=== PATIENT | female | born 1960 | race Caucasian/White ===

== ENCOUNTER → 2017-08-13 | Day surgery (SDC) | payer BC ==
[~2017-08-13] MED LIST: Lactated Ringers 1,000 ML IV SCH; Propofol 200 MG/20 ML SDV IV ONE
--- NOTE | 2017-08-13 09:17 | OR ---
DATE OF OPERATION: 08/13/2017 PREOPERATIVE DIAGNOSIS: FAMILY HISTORY OF COLON CANCER. POSTOPERATIVE DIAGNOSIS: FAMILY HISTORY OF COLON CANCER. SURGEON: Rubio Lawrence MD PROCEDURE: FULL-LENGTH COLONOSCOPY. ANESTHESIA: [employer]I [employer]INTER due to sleep apnea. COMPLICATIONS: None. SPECIMEN: None. FINDINGS: 1. Full-length colonoscopy. 2. Finch diverticulosis. RECOMMENDATIONS: Follow up colonoscopy every 5 years. INDICATIONS: The patient has a family history of colon CA. Dr. Cortez sent her for routine followup scope. DESCRIPTION OF PROCEDURE: The patient was prepped and draped, placed in the left lateral decubitus position. A lubricated Olympus colonoscope was inserted and easily and safely advanced to the cecum. Direct visualization of the ileocecal valve and appendiceal orifice was accomplished. The bowel prep was adequate. Upon withdrawal of the scope, the patient does suffer from finch diverticular disease, most prominent in the left colon as expected, but present near the cecal pouch as well. Throughout the length of the colon, I could find no signs of any polyps, mass, ulceration, or bleeding sites. No vascular abnormalities or signs of colitis. The rectal vault was benign. Retroflexion of the scope in the rectum showed no perianal lesions. Air was then suctioned. Scope was removed without complication. TOMY/JM /[id number]
== END ==
LOC: CC.SDS 06:26
PROVIDERS: ATTEND Family Medicine
DX: Z12.11 Encounter for screening for malignant neoplasm of colon (principal); K57.30 Diverticulosis of large intestine without perforation or abscess without bleeding; M19.90 Unspecified osteoarthritis, unspecified site; E11.9 Type 2 diabetes mellitus without complications; N85.2 Hypertrophy of uterus; E78.5 Hyperlipidemia, unspecified; I10 Essential (primary) hypertension; G47.33 Obstructive sleep apnea (adult) (pediatric); I35.8 Other nonrheumatic aortic valve disorders; B37.3 Candidiasis of vulva and vagina; E89.0 Postprocedural hypothyroidism; N76.0 Acute vaginitis; E55.9 Vitamin D deficiency, unspecified; Z80.0 Family history of malignant neoplasm of digestive organs; Z88.8 Allergy status to other drugs, medicaments and biological substances; Z79.82 Long term (current) use of aspirin; Z79.899 Other long term (current) drug therapy; Z79.84 Long term (current) use of oral hypoglycemic drugs; Z98.890 Other specified postprocedural states
CPT/HCPCS: 82962; J2704; J7120

== ENCOUNTER 2017-09-19 10:57 | Emergency (ER) | payer BC ==
--- NOTE | 2017-09-19 11:26 | EDM.PDOC ---
ED HPI GENERAL MEDICAL PROBLEM - General Chief Complaint: Lower Extremity Injury/Pain Stated Complaint: left calf pain Time Seen by Provider: 09/19/17 11:25 Source of Information: Reports: Patient History Limitations: Reports: No Limitations - History of Present Illness INITIAL COMMENTS - FREE TEXT/NARRATIVE: This patent is a 56 year old female that presents to the ER. Patient reports that she woke up this morning with left lower posterior calf pain. She reprots the pain is worse when she walks on it. Patient reports she had a hysterectomy on Wednesday without complications, she has a norwood in place now. Patient reports mild headache. Patient denies n, v, d, f, neck pain, neck stiffness, cp, soa, abd pain, bowel changes, rashes. Denies to LLE redness, heat, swelling. Pulses + 2, cap refill <2 sec, sensory/motor function, neurovascular intact. Onset: Today Location: Reports: Lower Extremity, Left Quality: Reports: Ache Severity: Mild Improves with: Reports: Immobilization Worsens with: Reports: Movement Associated Symptoms: Reports: No Other Symptoms, Headaches. Denies: Confusion, Chest Pain, Cough, cough w sputum, Diaphoresis, Fever/Chills, Loss of Appetite, Malaise, Nausea/Vomiting, Rash, Seizure, Shortness of Breath, Syncope, Weakness - Related Data Allergies Allergy/AdvReac Type Severity Reaction Status Date / Time acetaminophen [From Percocet] Allergy Itching Verified 09/19/17 11:04 oxycodone [From Percocet] Allergy Itching Verified 09/19/17 11:04 Home Meds: Home Meds Acetaminophen/Butalbital/Caff [Fioricet 325-50-40 MG] 1 - 2 tab PO TID PRN 08/12 [History] Aspirin [Halfprin] 81 mg PO DAILY 08/12/17 [History] Calcium Carbonate [Calcium] 1 tab PO DAILY 08/12/17 [History] Cholecalciferol (Vitamin D3) [Vitamin D3] 10,000 unit PO DAILY 08/12/17 [History ] Fenofibrate 160 mg PO DAILY 08/12/17 [History] Levothyroxine Sodium [Synthroid] 175 mcg PO DAILY 08/12/17 [History] Liraglutide [Victoza] 1.2 mg SUBCUT DAILY 08/12/17 [History] Lisinopril 10 mg PO DAILY 08/12/17 [History] Magnesium Oxide [Magnesium] 500 mg PO DAILY 08/12/17 [History] Pravastatin Sodium 10 mg PO DAILY 08/12/17 [History] Triamterene/Hydrochlorothiazid [Triamterene-HCTZ 37.5-25 MG] 1 cap PO DAILY 07/01 [History] Vitamin B Complex [B Complex] 1 tab PO DAILY 08/12/17 [History] metFORMIN HCl [Metformin HCl] 1,000 mg PO BID 08/12/17 [History] Nitrofurantoin Macrocrystal [Macrodantin] 100 mg PO DAILY 09/19/17 [History] Past Medical History HEENT History: Reports: Impaired Vision Cardiovascular History: Reports: Hypertension Respiratory History: Reports: Sleep Apnea Genitourinary History: Reports: Urinary Incontinence, Other (See Below) Other Genitourinary History: bladder nicked during hysterectomy Endocrine/Metabolic History: Reports: Hypothyroidism - Past Surgical History GI Surgical History: Reports: Cholecystectomy, Colonoscopy Female Surgical History: Reports: Section, Hysterectomy Endocrine Surgical History: Reports: Thyroidectomy, Other (See Below) Other Endocrine Surgeries/Procedures: thyroidectomy 1998 Musculoskeletal Surgical History: Reports: Joint Replacement, Other (See Below) Other Musculoskeletal Surgeries/Procedures:: right knee partial 2006 Social & Family History - Family History Family Medical History: Noncontributory - Tobacco Use Smoking Status *Q: Never Smoker - Caffeine Use Caffeine Use: Reports: Coffee - Recreational Drug Use Recreational Drug Use: No Review of Systems - Review of Systems Review Of Systems: See Below Constitutional: Reports: No Symptoms Eyes: Reports: No Symptoms Ears: Reports: No Symptoms Nose: Reports: No Symptoms Mouth/Throat: Reports: No Symptoms Respiratory: Reports: No Symptoms Cardiovascular: Reports: No Symptoms GI/Abdominal: Reports: No Symptoms Genitourinary: Reports: No Symptoms Musculoskeletal: Reports: Leg Pain (left lower extremity lower calf) Skin: Reports: No Symptoms Neurological: Reports: Headache. Denies: Confusion, Dizziness, Numbness, Seizure, Syncope, Tingling, Trouble Speaking, Difficulty Walking, Weakness, Change in Speech, Gait Disturbance Psychiatric: Reports: No Symptoms ED EXAM, GENERAL - Physical Exam Exam: See Below Exam Limited By: No Limitations General Appearance: Alert, WD/WN, No Apparent Distress Eye Exam: Bilateral Eye: Normal Inspection, PERRL Ears: Normal External Exam, Normal Canal, Hearing Grossly Normal, Normal TMs Ear Exam: Bilateral Ear: Auricle Normal, Canal Normal, TM normal Nose: Normal Inspection, Normal Mucosa, No Blood Throat/Mouth: Normal Inspection, Normal Lips, Normal Teeth, Normal Gums, Normal Oropharynx, Normal Voice, No Airway Compromise Head: Atraumatic, Normocephalic Neck: Normal Inspection, Supple, Non-Tender, Full Range of Motion Respiratory/Chest: No Respiratory Distress, Lungs Clear, Normal Breath Sounds, No Accessory Muscle Use Cardiovascular: Normal Peripheral Pulses, Regular Rate, Rhythm, No Edema, No Gallop, No JVD, No Murmur, No Rub Peripheral Pulses: 2+: Popliteal (L), Popliteal (R), Posterior Tibial (L), Posterior Tibial (R), Dorsalis Pedis (L), Dorsalis Pedis (R) Back Exam: Normal Inspection, Full Range of Motion Extremities: Normal Inspection, Normal Range of Motion, No Pedal Edema, Normal Capillary Refill, Other (left lower extremity distal posterior calf, mild tenderness. No swelling, redness, heat, wounds. Negative Holmans sign. ). No: Redness Neurological: Alert, Oriented, Normal Cognition, Normal Gait, No Motor/Sensory Deficits Psychiatric: Normal Affect, Normal Mood Skin Exam: Warm, Dry, Intact, Normal Color, No Rash Lymphatic: No Adenopathy Course - Vital Signs Last Recorded V/S: Last Vital Signs Temp 99.3 F 09/19/17 10:58 Pulse 88 09/19/17 10:58 Resp 18 09/19/17 10:58 BP 136/90 09/19/17 10:58 Pulse Ox 98 09/19/17 10:58 - Orders/Labs/Meds Orders: Active Orders 24 hr Category Date Time Status CULTURE BLOOD [BC] Stat Lab 09/19/17 11:34 Received CULTURE BLOOD [BC] Stat Lab 09/19/17 11:34 Received Blood Culture x2 Reflex Set [OM.PC] Stat Oth 09/19/17 11:14 Ordered Labs: Laboratory Tests 09/19/17 09/19/17 09/19/17 Range/Units 11:14 11:14 11:14 WBC 6.0 (5.0-10.0) 10^3/uL RBC 3.91 L (4.00-5.50) 10^6/uL Hgb 11.4 L (12.0-16.0) g/dL Hct 34.3 L (37.0-47.0) % MCV 87.7 (82.0-94.0) fL MCH 29.2 (27.0-32.0) pg MCHC 33.2 (33.0-38.0) g/dL RDW Coeff of Susanne 12.4 (11.0-15.0) % Plt Count 233 (150-400) 10^3/uL Neut % (Auto) 59.8 (35-85) % Lymph % (Auto) 21.9 (10-55) % Osborne % (Auto) 8.9 (0-16) % Eos % (Auto) 8.9 H (0-5) % Baso % (Auto) 0.5 (0-3) % Neut # (Auto) 3.61 (1.80-7.00) 10^3/uL Lymph # (Auto) 1.32 (1.00-4.80) 10^3/uL Osborne # (Auto) 0.54 (0.00-0.80) 10^3/uL Eos # (Auto) 0.54 H (0.00-0.45) 10^3/uL Baso # (Auto) 0.03 10^3/uL PT 9.5 L (9.7-12.3) SEC INR 0.91 L (0.92-1.18) APTT 23.8 (23.2-32.3) SEC D-Dimer, Quantitative 2.75 H (0.00-0.50) Sodium 138 (136-145) mEq/L Potassium 3.8 (3.5-5.0) mEq/L Chloride 102 (98-106) mEq/L Carbon Dioxide 25 (21-32) mmol/L BUN 9 (7-18) mg/dL Creatinine 0.8 (0.6-1.0) mg/dL Est Cr Clr Drug Dosing 72.63 mL/min Estimated GFR (MDRD) > 60 (>=60) mL/min Glucose 218 H (75-99) mg/dL Lactic Acid (0.4-2.0) mmol/L Calcium 9.0 (8.4-10.1) mg/dL 09/19/17 Range/Units 11:14 WBC (5.0-10.0) 10^3/uL RBC (4.00-5.50) 10^6/uL Hgb (12.0-16.0) g/dL Hct (37.0-47.0) % MCV (82.0-94.0) fL MCH (27.0-32.0) pg MCHC (33.0-38.0) g/dL RDW Coeff of Susanne (11.0-15.0) % Plt Count (150-400) 10^3/uL Neut % (Auto) (35-85) % Lymph % (Auto) (10-55) % Osborne % (Auto) (0-16) % Eos % (Auto) (0-5) % Baso % (Auto) (0-3) % Neut # (Auto) (1.80-7.00) 10^3/uL Lymph # (Auto) (1.00-4.80) 10^3/uL Osborne # (Auto) (0.00-0.80) 10^3/uL Eos # (Auto) (0.00-0.45) 10^3/uL Baso # (Auto) 10^3/uL PT (9.7-12.3) SEC INR (0.92-1.18) APTT (23.2-32.3) SEC D-Dimer, Quantitative (0.00-0.50) Sodium (136-145) mEq/L Potassium (3.5-5.0) mEq/L Chloride (98-106) mEq/L Carbon Dioxide (21-32) mmol/L BUN (7-18) mg/dL Creatinine (0.6-1.0) mg/dL Est Cr Clr Drug Dosing mL/min Estimated GFR (MDRD) (>=60) mL/min Glucose (75-99) mg/dL Lactic Acid 1.8 (0.4-2.0) mmol/L Calcium (8.4-10.1) mg/dL - Re-Assessments/Exams Free Text/Narrative Re-Assessment/Exam: 09/19/17 11:58 Patient has no fever, temp is 99.7, no redness, heat, drainage, wound, wbc elevation to indicate infectious process. Patient d-dimer is elevated, will order US of LLE for tomorrow. We do not have US today. At this time, will not start on anticoagulant until US report tomorrow if positive DVT. Risk factors outweigh benefits without a known dx of dvt. Will discharge. Departure - Departure Time of Disposition: 12:00 Disposition: Home, Self-Care 01 Condition: Good Clinical Impression: Pain of left calf, Elevated d-dimer - Discharge Information Instructions: Deep Vein Thrombosis Forms: ED Department Discharge Additional Instructions: Followup with your primary care provider tomorrow Have Venous Ultrasound performed on Left Lower Extremity Tomorrow Be here tomorrow at 9am for US per Gopal Hein Return to the ER for worsening of condition or any emergent concerns - My Orders Last 24 Hours: My Active Orders 09/19/17 11:14 Blood Culture x2 Reflex Set [OM.PC] Stat 09/19/17 11:34 CULTURE BLOOD [BC] Stat CULTURE BLOOD [BC] Stat - Assessment/Plan Last 24 Hours: My Active Orders 09/19/17 11:14 Blood Culture x2 Reflex Set [OM.PC] Stat 09/19/17 11:34 CULTURE BLOOD [BC] Stat CULTURE BLOOD [BC] Stat Plan: PLEASE SEE RN NOTE FOR PFSH.
[2017-09-19 11:44] LABS: CHLORIDE,CL 102 mEq/L (98-106); SODIUM,NA 138 mEq/L (136-145)
== END 2017-09-19 12:17 | disposition home or self-care (01) ==
LOC: CC.ED 10:57
DX: M79.662 Pain in left lower leg (principal); R79.1 Abnormal coagulation profile; E03.9 Hypothyroidism, unspecified; I10 Essential (primary) hypertension; Z79.82 Long term (current) use of aspirin; Z79.84 Long term (current) use of oral hypoglycemic drugs; Z79.899 Other long term (current) drug therapy; Z88.6 Allergy status to analgesic agent
CPT/HCPCS: 36415; 80048; 83605; 85025; 85379; 85610; 85730; 87040; 99283

== ENCOUNTER → 2022-09-25 | Day surgery (SDC) | payer BC ==
[~2022-09-25] MED LIST changes: -Propofol 200 MG/20 ML SDV IV ONE
== END ==
LOC: CC.SDS 07:15
PROVIDERS: ATTEND Family Medicine
DX: Z12.11 Encounter for screening for malignant neoplasm of colon (principal); I10 Essential (primary) hypertension; E78.5 Hyperlipidemia, unspecified; E03.9 Hypothyroidism, unspecified; E11.9 Type 2 diabetes mellitus without complications; R53.83 Other fatigue; M19.90 Unspecified osteoarthritis, unspecified site; Z80.0 Family history of malignant neoplasm of digestive organs; E55.9 Vitamin D deficiency, unspecified; Z88.5 Allergy status to narcotic agent; R10.11 Right upper quadrant pain
CPT/HCPCS: 00811; 82947; J7120

== ENCOUNTER 2024-08-11 14:10 | Emergency (ER) | payer BC ==
[2024-08-11 14:29] LABS: BASOPHILS ABSOLUTE AUTO 0.05 10^3/uL (0.00-0.50); BASOPHILS PERCENT AUTO 0.7 % (0-1); EOSINOPHILS ABSOLUTE AUTO 0.31 10^3/uL (0.00-1.50); EOSINOPHILS PERCENT AUTO 4.3 % (0-6); HEMATOCRIT 41.9 % (37.0-47.0); IMMATURE GRAN ABSOLUTE AUTO 0.03 10^3/uL (0.00-0.49); IMMATURE GRAN PERCENT AUTO 0.4 % (0.0-4.9); LYMPHOCYTES ABSOLUTE AUTO 2.79 10^3/uL (0.60-5.00); LYMPHOCYTES PERCENT AUTO 38.7 % (24-44); MEAN CORPUSCULAR HEMOGLOBIN 28.3 pg (27.0-32.0); MEAN CORPUSCULAR HGB CONC 33.4 g/dL (32.0-36.0); MEAN CORPUSCULAR VOLUME 84.6 fL (83.0-97.0); MONOCYTES ABSOLUTE AUTO 0.66 10^3/uL (0.00-1.50); MONOCYTES PERCENT AUTO 9.2 % (0-10); NEUTROPHILS ABSOLUTE AUTO 3.37 x10^3/uL (1.80-8.00); NEUTROPHILS PERCENT AUTO 46.7 % (41-71); PLATELET COUNT,PLT 289 10^3/uL (150-400); RED BLOOD CELL COUNT 4.95 x10^6/uL (4.00-5.50); WHITE BLOOD CELL COUNT,WBC 7.2 10^3/uL (4.0-11.0)
[2024-08-11 14:35] LABS: ALANINE AMINOTRANSFERASE,ALT 231 U/L (12-78); ALBUMIN 4.1 g/dL (3.4-5.0); ALKALINE PHOSPHATASE 61 U/L (46-116); ASPARTATE AMNIOTRANSFERASE,AST 86 U/L (15-37); BILIRUBIN TOTAL 0.4 mg/dL (0.0-1.0); BLOOD UREA NITROGEN,BUN 9 mg/dL (7-18); CALCIUM 9.6 mg/dL (8.4-10.1); CARBON DIOXIDE,CO2 25 mmol/L (21-32); CHLORIDE,CL 99 mEq/L (98-106); CREATININE 0.8 mg/dL (0.6-1.0); GLUCOSE RANDOM 169 mg/dL (75-99); LIPASE 31 U/L (16-77); MAGNESIUM 1.3 mg/dL (1.8-2.4); POTASSIUM,K 4.1 mEq/L (3.5-5.0); PROTEIN TOTAL,TP 7.4 g/dL (6.4-8.2); SODIUM,NA 136 mEq/L (136-145)
[2024-08-11 14:42] LABS: INR 0.98 (0.92-1.18); PROTHROMBIN TIME 10.3 SEC (9.3-11.3); PTT,PARTIAL THROMBOPLSTIN TIME 23.9 SEC (20.0-30.0)
[2024-08-11 14:53] LABS: ESTIMATED GFR 82 mL/min (>=60)
[2024-08-11] MEDS: Iopamidol 755 Mg/ML 100 ML Bottle IVPUSH ONE (15:32)
[2024-08-11] MEDS: Magnesium Sulf/Wat 2 GM/50 mL 2 GM in Premix Bag 1 BAG IV ONE (15:54)
== END 2024-08-11 17:50 | disposition home or self-care (01) ==
LOC: CC.ED 14:10
DX: R07.9 Chest pain, unspecified (principal); E83.42 Hypomagnesemia; I10 Essential (primary) hypertension; E03.9 Hypothyroidism, unspecified; Z90.49 Acquired absence of other specified parts of digestive tract; Z90.710 Acquired absence of both cervix and uterus; Z88.5 Allergy status to narcotic agent; Z88.6 Allergy status to analgesic agent; Z79.82 Long term (current) use of aspirin; Z79.84 Long term (current) use of oral hypoglycemic drugs; Z79.890 Hormone replacement therapy; Z79.899 Other long term (current) drug therapy
CPT/HCPCS: 36415; 71046; 71275; 80053; 83690; 83735; 84484; 85025; 85379; 85610; 85730; 93005; 96365; 96366; 99285-25; J3475; Q9967